=== PATIENT | female | born 1945 | race African-American/Black ===

== ENCOUNTER 2020-07-15 15:00 | Outpatient (RCR) | payer MEDICARE, SELFPAY ==
--- NOTE | 2020-06-18 11:53 | PTOPEVAL ---
PHYSICAL THERAPY EVALUATION AND PLAN OF CARE 06-18-2020 Thank you for referring Malcom Eagn to [facility] [place].? She is scheduled to be seen for therapy? 2 x/week for 4 weeks for the diagnosis of low back pain. Please review, sign, date and return this plan of care CARLO. I agree with and certify that the following plan of care is medically necessary. Referring Physician Date Attending Provider: Dr. Natan Arredondo *PT Outpatient Evaluation Start: 06/18/20 10:42 Document 06/18/20 10:35 KODAK (Rec: 06/18/20 11:53 KODAK [id number]) Outpatient Past Medical History Past Medical History Source of Past Medical History Patient Neurological History Hx Neurological Disorders No Significant History Cardiovascular History Hx Cardiac Disorders No Significant History Respiratory History Hx Respiratory Disorders No Significant History Gastrointestinal History Hx Irritable Bowel Yes Genitourinary History Hx Genitourinary Disorders No Significant History Musculoskeletal History Hx Arthritis Yes: R and L knee arthritis Hx Back Pain Yes: 2017 Hx Orthopedic Surgery Yes: L rot cuff repair; B shoulder pain;R arthroscopy x2 Hx Other Musculoskeletal Disorders Yes: osteoporosis- meds Endocrine History Hx Diabetes Yes: meds Reproductive History Hx Section Yes Evaluation Information Problem Diagnosis back pain, spondylosis L 4-5 Onset May 29, 2020 Subjective Information past 5-6 months not as active Query Text:As Reported By Patient/ due to pandemic; sitting more Family and doing more reading; not playing as much tennis or being as active; last played tennis Nov; no recent injury or trauma to back; Oswestry self assessment functional score 28% limitation in activity Diagnostic Tests X-Rays For This Problem Yes: no recent;prev L 4-5 spondylosis Previous Treatments Previous Treatments For This Problem previous PT 2017- was doing exercises Prior Level of Function Activity Level (Last 3 Months) Occupation retired; 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
--- NOTE | 2020-07-15 16:01 | PTOPEVAL ---
PHYSICAL THERAPY DISCHARGE 07-15-2020 Refer to the clinical summary section below for the comparison from today's reevaluation to her initial evaluation. The goals were partially achieved. Thank you for referring Malcom Egan to [facility].? Please review, sign, date and return this plan of care CARLO. I agree with and certify that the following plan of care is medically necessary. Referring Physician Date Attending Provider: Dr. Natan Arredondo *PT Outpatient Discharge Document 07/15/20 15:05 KODAK (Rec: 07/15/20 15:49 KODAK [id number]) Subjective Information Malcom reports: doing better Query Text:As Reported By Patient/ ; walk about 3-4 blocks before Family pain increase; sitting about 1 hour then have discomfort and have to move; sleeping about 3-4 hours before pain wakes her up, reposition/turn; Pain Assessment Timing of Pain Assessment Timing of Pain Assessment Assessment Self Report Self Report Pain Level 0 Pain Score Pain Score 0: Self Report Additional Pain Score Comments dull ache pain 2/10 General Exercise General Exercises Side Bilateral Exercise Type Active,Stabilization, Stretching Exercise Description sitting on ball: pelvic Query Text:Record Sets, Reps, circles, pelvic tilts, knee Resistance, and Position ext, hip flex, alt arm/leg lift, red theraband B rows and diagonal pulls; attempted prone exercises- increase knee and back pain; - supine stretch: R & L hip flexion, IR and ER & hamstrings and piriformis; reports little back pain with R hip IR and L prone hip extension; Bike Exercise Bike Extremity Bilateral Lower Type of Bike Recumbent Stepper Bike Resistance level 2 resistance Duration (minutes) 6 Exercise Comments warm up prior to exercises Rehab Teaching Rehab Teaching Teaching Topic Rehab Teaching Topic Components Exercise,Home Program Recipient Patient Learning Preferences Audio,Demonstration,One-on-One Instruction,Written Barriers to Learning None Readiness to Learn Excellent Response Verbalizes Understanding Method Discussion Additional Rehab Teaching Comments handout for general ball
== END 2020-07-16 08:16 | disposition home or self-care (01) ==
LOC: ANHPT 15:00
DX: M47.816 Spondylosis without myelopathy or radiculopathy, lumbar region (principal); M43.16 Spondylolisthesis, lumbar region; M54.5 Low back pain
CPT/HCPCS: 97014; 97110; 97140; 97161; G0283

== ENCOUNTER 2021-03-29 11:49 | Outpatient (CLI) | payer MEDICARE, SELFPAY ==
[2021-03-29 12:48] LABS: Rheumatoid Factor < 8.6 IU/ML (<12)
[2021-03-31 14:42] LABS: Thyroid Stimulating Immunoglob <89 % baseline (<140)
[2021-03-31 15:03] LABS: Anti Cardio Antibody IgM 13 MPL (<=12); Anti Cardiolipin Antibody IgA <11 APL (<=11); Anti Cardiolipin Antibody IgG 20 GPL (<=14)
[2021-03-31 19:47] LABS: Lupus dRVVT 1:1 Mix Interpreta Not Indicated; Lupus dRVVT Screen 34 sec (<=45); PTT-LA Screen 34 sec (<=40)
[2021-03-31 22:40] LABS: Albumin 4.2 g/dL (3.8-4.8); Alpha 1 Globulin 0.3 g/dL (0.2-0.3); Alpha 2 Globulin 0.9 g/dL (0.5-0.9); Beta 1 Globulin 0.4 g/dL (0.4-0.6); Protein, Total 7.2 g/dL (6.1-8.1)
[2021-04-02 06:26] LABS: Thyroid Peroxidase Antibodies <1 IU/mL (<9)
[2021-04-05 16:15] LABS: SM Antibody <1.0; SM/RNP Antibody <1.0; SS-A <1.0; SS-B <1.0
[2021-04-07 10:04] LABS: Anti Cyclic Citrullinated Pept <16 Units (<20)
== END 2021-03-29 11:50 | disposition home or self-care (01) ==
PROVIDERS: Visit Provider Internal Medicine
DX: R76.8 Other specified abnormal immunological findings in serum (principal); M19.90 Unspecified osteoarthritis, unspecified site; Z51.81 Encounter for therapeutic drug level monitoring; Z79.899 Other long term (current) drug therapy
CPT/HCPCS: 36415; 84155; 84165; 84445; 85613; 85730; 86146; 86147; 86200; 86225; 86235; 86376; 86430

== ENCOUNTER 2021-03-30 14:09 | Outpatient (CLI) | payer MEDICARE, SELFPAY ==
[2021-03-31 16:55] LABS: Total Volume 24 Hour Urine 1500 ml
[2021-03-31 17:32] LABS: Creatinine 24 Hour Urine 0.8 gm/24 (0.8-1.8); Creatinine Urine 58.8 mg/dL
[2021-04-06 05:05] LABS: Total Volume 1500 mL; Urine Calcium 3.1 mg/dL
== END 2021-03-30 14:10 | disposition home or self-care (01) ==
DX: E34.9 Endocrine disorder, unspecified (principal)
CPT/HCPCS: 81050; 82340; 82570

== ENCOUNTER 2022-01-23 13:30 | Outpatient (RCR) | payer MEDICARE, SELFPAY ==
--- NOTE | 2021-12-26 14:48 | PTOPEVAL ---
Thank you for referring Malcom Egan to [facility] [place] [facility].? The patient is scheduled to be seen for therapy?2 x/week for 4 weeks. Please review, sign, date and return this plan of care CARLO. I agree with and certify that the following plan of care is medically necessary. Referring Physician Date Attending Provider: Michell Gerard Diagnosis spinal stenosis Onset 1 yr Additional Evaluation Detail DX with osteoporosis and osteopenia She received therapy ~ 1.6 yrs ago. She was performing HEP, but stopped with recent DX. 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 Subjective Information She has been having issue with Query Text:As Reported By Patient/ her back for the past year Family with progression of symptoms in the past few months. Reports limitations with descending steps. Denies any problems with ADL's, IADL's or community walking. Increased pain with prolonged sitting or sleeping on her back. She was playing tennis stopped due recent osteoperosis. Pain Assessment Lower Back Reported Pain Level 2 Pain Frequency Chronic Lowest Pain Intensity 2 Greatest Pain Intensity 9 Pain Aggravating Factors Prolonged Position,Sitting Cervical and Lumbar ROM Lumbar ROM Lumbar Flexion Active Floor:Hands to: Lateral Flexion lateral knee joint line:Active Hands to: Lumbar Comments 50% trunk ext no pain with motion Lower Extremity Range of Motion General Lower Extremity Range of Motion Gross Lower Extremity Range of Motion driss knee flex: 90 dg with hard Comments end feel Cervical and Lumbar Muscle Testing Lumbar Strength Upper Abdominal Strength 3 Fair Lower Abdominal Strength 3 Fair Upper Back Extension 3 Fair Lower Back Extension 3-Fair- Lower Extremity Muscle Strength Testing Hip Strength Left Hip Flexion Strength 4- Good - Hip Extension Strength 3+ Fair + Hip Abduction Strength 3 Fair Right Hip Flexion Strength 4- Good - Hip Extension Strength 3 Fair Hip Abduction Strength 3 Fair Knee Strength Left Knee Flexion Strength 3+ Fair + Knee Extension Strength 5 Normal Right Knee Flexion Strength 3+ Fair + Knee Extension Strength 5 N
--- NOTE | 2022-01-23 14:23 | PTOPEVAL ---
Physical Therapy Discharge Summary Thank you for referring Jeanna Back to [facility].? She has attended 9 therapy visits to address her pain and weakness limitations. As a result of skilled therapy services she demonstrates improved trunk strength, improved gait deviations and improved pain level. She has been instructed in a HEP to address her muscle weakness and decreased functional mobility. She has partially achieved her therapy goals at this time. Will DC skilled therapy services with recommendations for for her to continue with HEP. Please review, sign, date and return this discharge summary CARLO. I agree with and certify that the following plan of care is medically necessary. Referring Physician Date Attending Provider: Michell Gerard Diagnosis spinal stenosis Onset 1 yr Additional Evaluation Detail DX with osteopetrosis and osteopenia She received therapy ~ 1.6 yrs ago. She was performing HEP, but stopped with recent DX. 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 Subjective Information She does feel therapy has Query Text:As Reported By Patient/ improved her symptoms. Family Reports improved tolerance on steps at home. Improved steadiness on steps. She is avoiding sitting > than 2 hrs, with improved pain symptoms. Reports improved right knee pain with activities. Pain Assessment Lower Back Reported Pain Level 1 Pain Description Sharp Pain Frequency Chronic Lowest Pain Intensity 1 Greatest Pain Intensity 8 Cervical and Lumbar Muscle Testing Upper Abdominal Strength 3 Fair Lower Abdominal Strength 3 Fair Upper Back Extension 3 Fair Lower Back Extension 3-Fair- Lower Extremity Muscle Strength Testing Hip Strength Left Hip Flexion Strength 4+ Good + Hip Extension Strength 3+ Fair + Hip Abduction Strength 3 Fair Right Hip Flexion Strength 4 Good Hip Extension Strength 4- Good - Hip Abduction Strength 3 Fair Knee Strength Left Knee Flexion Strength 3+ Fair + Knee Extension Strength 5 Normal Right Knee Flexion Strength 4- Good - Knee Extension Strength 5 Normal Balance Assessment Time Up Go (TUG) Timed Up and Go Test (TUG) (Seconds) 10 Assistive Devices None 5 Time Sit to Stand Time in Seconds 12 5 Time Sit to Stand Comments without UE support, improved Query Text:Normative Data: If Greater LE control Than 15 Seconds, 74% Increase Risk for no increas
== END 2022-01-23 15:59 | disposition home or self-care (01) ==
LOC: ANHPT 13:30
DX: M48.061 Spinal stenosis, lumbar region without neurogenic claudication (principal)
CPT/HCPCS: 97110; 97112; 97162

== ENCOUNTER 2025-05-13 15:43 | Outpatient (CLI) | payer MEDICARE, SELFPAY ==
--- NOTE | ~2025-05-13 | CT_ITS ---
EXAMINATION: CT sinus wo con DATE: 05/13/2025 15:55 INDICATION: Recurrent maxillary sinusitis TECHNIQUE: Computed tomography (CT) of the paranasal sinuses was performed without intravenous contra st. The dose-length product was 270.28 mGy-cm. Automated exposure control and iterative reconstructio n technique were employed. COMPARISON: CT dated 07/28/2021 FINDINGS: No significant mucosal thickening. No air-fluid levels. No mucoperiosteal reaction. Leftwar d nasal septal deviation. Ostiomeatal units. No mucoperiosteal reaction. Mastoids are pneumatized. IMPRESSION: 1. No significant sinus disease. Reviewed, dictated and finalized at location B.
== END 2025-05-13 15:44 | disposition home or self-care (01) ==
LOC: MICIMG 15:44
PROVIDERS: PCP Internal Medicine; Visit Provider Otolaryngology
DX: J01.01 Acute recurrent maxillary sinusitis (principal); J32.0 Chronic maxillary sinusitis; K04.7 Periapical abscess without sinus
CPT/HCPCS: 70486

== ENCOUNTER 2025-06-09 11:15 | Outpatient (RCR) | payer MEDICARE, SELFPAY ==
--- NOTE | 2025-05-12 07:55 | OPREHPOC ---
Outpatient Therapy Plan of Care This is a Multidisciplinary Plan of Care that may contain components documented by all disciplines (PT, OT, and ST.) PT Problem 1 PT Problem #1 Knowledge Deficit PT Goal 1 Goal / Goal Update 1* independent with HEP 2* pt demonstrate correct body mechanics during PT session Target Visit 10 PT Problem 2 PT Problem #2 Pain PT Goal 1 Goal / Goal Update 1* pt report pain at worst rating of 5/10 2* NO radicular pain to R lateral hip 3* pt report with sleeping, awaken 1x/night due to back pain Target Visit 10 PT Problem 3 PT Problem #3 Impaired Strength PT Goal 1 Goal / Goal Update increase strength of trunk and hips, to improve stability to spine 1* gross strength of 4+/5 single leg standing x 10 seconds with good stability 2* R 3* L Target Visit 10
--- NOTE | 2025-05-12 07:55 | PTOPEVAL1 ---
Assessment and note entered by Mitzi Madrid, PT Evaluation Information Assessment Status Evaluation ICD-10 Condition Codes (PT) Radiculopathy, lumbar region M54.16 Other ICD-10 Condition Codes ( lumbar spondylosis M 47.816 PT) Onset Nov 2024 Subjective Information gradual increase in back pain, without injury; more issues with sleeping and radicular pain to R knee; recently got a new mattress; have not been doing any back exercises; have had PT in the past for her back; history of chronic back pain, bilateral knee pain, OA, osteoporosis; also, just started having L shoulder pain--popped with standing up; saw ortho- xrays were done: per pt- spinal stenosis activity: retired flexible nanny, active, volunteer work [place]; play tennis; Reported Pain Level Pain Score Self Report Additional Pain Score Comments pain range in the past week: 2-9/10; radicular to R hip; was going into R knee increase pain: with lying down to sleep at night- awaken 2x/night due to pain decrease pain: tylenol, roll on hemp; not use heat, ice; Assessment PT Clinical Summary Margoth has the diagnosis of lumbar spondylosis. She has a history of chronic back pain, with gradual increase- now disturbing her sleep and radicular into R thigh. Self assessment with the Back Index rating of 24% limitation in activity level. Her medical history includes: chronic back and bilateral knee pain/OA, diabetes, R knee surgery, osteoporosis, shoulder surgery and bilateral shoulder pain. With the evaluation: poor standing posture with R knee valgus, L hip elevation and R forward pelvic position; weakness of hips and trunk; bilateral knee flexion is limited to 90'; pain is increased with extension motion. Skilled PT services are indicated for modalities to decrease pain, therapeutic exercises to increase strength and education for HEP, posture and body mechanics, with pain management techniques. Plan of Care Interventions Electrical Stimulation,Gait Training,Hot Pack/Cold Pack,Manual Therapy,Neuro Re-education,Patient/ Caregiver Education,Therapeutic Activities, Therapeutic Exercise,Ultrasound,Other Other Interventions taping PT Services Indicated Yes Treatment Frequency and 1-2x/wk for 10 visits Duration These treatments will address the objective and functional deficits as defined above. The patient will be advanced safely and appropriately in order for the patient to progress towards his/her prior level of function. Additional exercises will be introduced and as well as a comprehensive home exercise program upon discharge, if needed, ?to ensure carryover of functional gains achieved in the clinic. This treatment plan has been reviewed and agreement upon by the patient.
--- NOTE | 2025-06-09 11:41 | OPREHPOC ---
Outpatient Therapy Plan of Care This is a Multidisciplinary Plan of Care that may contain components documented by all disciplines (PT, OT, and ST.) PT Problem 1 PT Problem #1 Knowledge Deficit PT Goal 1 Goal / Goal Update 1* independent with HEP 2* pt demonstrate correct body mechanics during PT session 06-09-25 d/c goals met Target Visit 10 Progress Met PT Problem 2 PT Problem #2 Pain PT Goal 1 Goal / Goal Update 1* pt report pain at worst rating of 5/10 2* NO radicular pain to R lateral hip 3* pt report with sleeping, awaken 1x/night due to back pain 06-09-25 d/c goals met Target Visit 10 Progress Met PT Problem 3 PT Problem #3 Impaired Strength PT Goal 1 Goal / Goal Update increase strength of trunk and hips, to improve stability to spine 1* gross strength of 4+/5 single leg standing x 10 seconds with good stability 2* R 3* L 06-09-25 d/c goals met Target Visit 10 Progress Met
--- NOTE | 2025-06-09 11:41 | PTOPDC ---
Assessment and note entered by Mitzi Madrid, PT Assessment Status Discharge ICD-10 Condition Codes (PT) Radiculopathy, lumbar region M54.16 Other ICD-10 Condition Codes ( lumbar spondylosis M 47.816 PT) Onset Nov 2024 Subjective Information doing much better with my back; walking better and sleeping without waking up; doing the exercises; want to be done with therapy; to have MRI of shoulder Sunday, it still really hurts; Reported Pain Level Pain Score Self Report Additional Pain Score Comments pain range in the past week 0-2/10; only hurt a few times this past week: no pain in R hip; across R and L low back increase pain: sit too long decrease pain: change position, move around; Assessment PT Clinical Summary Margoth has received 6 PT sessions for back pain. Compared to the initial evaluation, she has improved in all areas: pain from 2-9/10 radicular into R hip to 0-2/10 without radicular pain; report awakening from sleep due to pain in her back from 2x to no awakening; self assessment with back index from 24 to 0% limitation in activity level; increase strength of trunk and hips; education for HEP and body mechanics/posture . She has returned to her normal activities. Margoth continues to have L shoulder pain--going to have MRI and see ortho about her shoulder. Goals for back treatment achieved. Discharge PT services. She is to continue with her HEP and monitor activity and posture/body mechanics. Plan of Care PT Services Indicated No
== END 2025-06-09 14:44 | disposition home or self-care (01) ==
LOC: ANHPT 11:15
DX: M47.816 Spondylosis without myelopathy or radiculopathy, lumbar region (principal)
CPT/HCPCS: 97110; 97140; 97161; 97530

== ENCOUNTER 2025-08-12 08:30 | Outpatient (RCR) | payer MEDICARE, SELFPAY ==
--- NOTE | 2025-06-26 14:13 | PTOPEVAL1 ---
Assessment and note entered by Meli Pruitt, PT Evaluation Information Assessment Status Evaluation Diagnosis L RTC tear arthropathy ICD-10 Condition Codes (PT) Pain in left shoulder M25.512,Weakness R53.1 Other ICD-10 Condition Codes ( Abnormal posture PT) Onset 05/07/25 Subjective Information Tore her rotator cuff getting up out of a chair, went to push off the chair and felt and snap and pop and felt a pain. States MD said some old injuries lead to this injury. 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 Reports complete tears of the supraspinatus and infraspinatus of the left shoulder. Pain is mainly in the shoulder and upper back Reports pain increases with reaching up in the cabinet and once while sleeping. Was taking Meloxicam however the GI doctor had her stop this for her colonoscopy, and has not had it for 4 days. Reported Pain Level Pain Score 4: Self Report Assessment PT Clinical Summary Pt presents approx 6 weeks after injury of left shoulder. Pt states MRI shows complete tears of the infraspinatus and supraspinatus muscles. Pt demonstrates fair ROM of the left shoulder with impingement symptoms at end-range. Demonstrates decreased active and passive external rotation with posterior shoulder pain likely related to poor glenohumeral rhythm. Pt will benefit from physical therapy to improve scapular positioning, reduce pain of L shoulder, and improve functional use of shoulder to meet patient goals. Plan of Care Interventions Electrical Stimulation,Hot Pack/Cold Pack,Manual Therapy,Neuro Re-education,Patient/Caregiver Education,Therapeutic Activities,Therapeutic Exercise,Ultrasound,Other Other Interventions Taping, bracing PT Services Indicated Yes Treatment Frequency and 2x weekly x 10 visits Duration These treatments will address the objective and functional deficits as defined above. The patient will be advanced safely and appropriately in order for the patient to progress towards his/her prior level of function. Additional exercises will be introduced and as well as a comprehensive home exercise program upon discharge, if needed, ?to ensure carryover of functional gains achieved in the clinic. This treatment plan has been reviewed and agreement upon by the patient.
--- NOTE | 2025-06-26 14:14 | OPREHPOC ---
Outpatient Therapy Plan of Care This is a Multidisciplinary Plan of Care that may contain components documented by all disciplines (PT, OT, and ST.) PT Goal 1 Goal / Goal Update Pt will be independent in HEP Pt will verbalize understanding of diagnosis and prognosis Target Visit 5 PT Problem 2 PT Problem #2 Pain PT Goal 1 Goal / Goal Update Pt will report lowest pain rating at 0/10 to show improvement in overall discomfort Target Visit 5 PT Goal 2 Goal / Goal Update Pt will report greatest pain level at 3/10 or less to improve ADLs and activities Target Visit 10 PT Problem 3 PT Problem #3 Impaired Range of Motion PT Goal 1 Goal / Goal Update Pt will demonstrate external rotation LUE of 45 degrees or greater Target Visit 5 PT Goal 2 Goal / Goal Update Pt will demonstrate external rotation LUE of 60 degrees or greater Target Visit 10
--- NOTE | 2025-08-12 09:17 | PTOPDC ---
Assessment and note entered by David Maya, PT Evaluation Information Assessment Status Discharge Diagnosis L RTC tear arthropahty ICD-10 Condition Codes (PT) Pain in left shoulder M25.512,Weakness R53.1 Other ICD-10 Condition Codes ( Abnormal posture PT) Onset 05/07/25 Subjective Information Pt reports since starting physical therapy she has noticed improvements in reduced pain levels and better motion. However, some limitations still persist primarily with overhead reaching ability and higher level activities. She has Left rTSA scheduled for Oct 05 Reported Pain Level Pain Score 1: Self Report Assessment PT Clinical Summary Patient's L shoulder has improved some but pain and ROM deficits persist due to structural rotator cuff tears. Pt is scheduled for L r TSA on Oct 05 and was given a pre-op HEP focusing on maintaining ROM and deltoid strengthening. Patient has met most therapy goals and is pleased with progress made towards the remaining goals. Patient to discharge from physical therapy this date and continue with updated home exercise program as instructed. Patient to contact physical therapist or primary care provider if questions or concerns arise. Plan of Care PT Services Indicated No
== END 2025-08-12 12:34 | disposition home or self-care (01) ==
LOC: ANHGOSHPT 08:30
PROVIDERS: PCP Internal Medicine
DX: M75.102 Unspecified rotator cuff tear or rupture of left shoulder, not specified as traumatic (principal); M12.812 Other specific arthropathies, not elsewhere classified, left shoulder
CPT/HCPCS: 97014; 97110; 97112; 97140; 97162; 97530; G0283